=== PATIENT | female | born 1940 | race Caucasian/White ===

== ENCOUNTER 2019-01-31 05:55 | Inpatient (IN) ==
[2019-01-31] MEDS ORDERED: ceFAZolin 2 GM in DEXTROSE 5% IN WATER 50 ML IV SCH (06:00)
[2019-01-31] MEDS ORDERED: IPRATROPIUM/ALBUTEROL 3 ML AMPUL.NEB NEB PRN ×2 (06:00→10:06)
[2019-01-31] MEDS ORDERED: SCOPOLAMINE 1 PATCH PATCH TOPICAL PRN (06:00)
[2019-01-31 06:47] LABS: POC Blood Urea Nitrogen 20 mg/dl (8-23); POC CO2 25 mmol/L (22-30); POC Calcium, Ionized 1.09 mmol/L (1.16-1.32); POC Chloride 104 mmol/L (96-108); POC Creatinine 0.9 mg/dl (0.6-1.1); POC Glucose, Random 100 mg/dL (70-105); POC Potassium 3.9 mmol/L (3.3-5.1); POC Sodium 139 mmol/L (133-145)
--- NOTE | 2019-01-31 07:55 | XRay Report ---
CLINICAL INFORMATION: Preoperative evaluation. Right hip fracture TECHNIQUE: AP pelvis. A lateral right hip COMPARISON: Previous examination dated 01/27/2019 FINDINGS: Subcapital right hip fracture with mild impaction and mild valgus angulation. Appearance is essentially unchanged since 01/27/2019. Pelvis and left hip are negative. Sacrum is negative. IMPRESSION: 1. Subcapital right hip fracture 2. No interval change since 01/27/2019 Interpreted and Authenticated by: Stan Yeboah 01/31/19
[2019-01-31] MEDS ORDERED: PROPOFOL 200 MG/20 ML VIAL IV ONE (09:00)
[2019-01-31] MEDS ORDERED: ONDANSETRON 4 MG/2 ML VIAL IV ONE (09:00)
[2019-01-31] MEDS ORDERED: DEXAMETHASONE 10 MG/ML VIAL IV ONE (09:00)
[2019-01-31] MEDS ORDERED: MIDAZOLAM 2 MG/2 ML VIAL IV ONE (09:00)
[2019-01-31] MEDS ORDERED: PHENYLEPHRINE 10 MG/ML VIAL IV ONE (09:00)
[2019-01-31] MEDS ORDERED: GLYCOPYRROLATE 0.2 MG/ML VIAL IV ONE (09:00)
[2019-01-31] MEDS ORDERED: LIDOCAINE HCL/PF 100 MG/5 ML SYRINGE IV ONE (09:00)
[2019-01-31] MEDS ORDERED: KETAMINE 10 MG/ML ML IV ONE (09:00)
--- NOTE | 2019-01-31 10:00 | Brief Operative Note ---
Date of procedure: 01/31/19 Pre-op diagnosis: right valgus impacted femoral neck fracture Post-op diagnosis: same Procedure: open treatment of femoral neck with cannulated screws. Grafts/Implants: Yes (rahul titanium screws x3) Anesthesia: GETA Findings: valgus impacted femoral neck fracture Complications: none Surgeon: Yvette Nicole Sanding Machine Operator Or Tender: Bentley Ruiz Estimated blood loss (cc): 5 Tourniquet Time (Minutes): 0 Specimens Removed/Pathology: none sent Condition: stable Disposition: PACU
[2019-01-31] MEDS ORDERED: KETOROLAC 15 MG/ML VIAL IV PRN (10:06)
[2019-01-31] MEDS ORDERED: ACETAMINOPHEN 1,000 MG/100 ML BOTTLE IV ONE (10:06)
[2019-01-31] MEDS ORDERED: MEPERIDINE 25 MG/ML SYRINGE IV PRN (10:06)
[2019-01-31] MEDS ORDERED: fentaNYL 100 MCG/2 ML VIAL IV PRN (10:06)
[2019-01-31] MEDS ORDERED: ONDANSETRON 4 MG/2 ML VIAL IV PRN (10:06)
[2019-01-31] MEDS ORDERED: BENZOCAINE/MENTHOL 1 LOZENGE PO PRN (10:08)
[2019-01-31] MEDS ORDERED: ACETAMINOPHEN 325 MG TABLET PO PRN (10:08)
[2019-01-31] MEDS ORDERED: BISACODYL 10 MG SUPP.RECT PR PRN (10:08)
[2019-01-31] MEDS ORDERED: POLYETHYLENE GLYCOL 3350 17 GM PACKET PO PRN (10:08)
[2019-01-31] MEDS ORDERED: MAGNESIUM HYDROXIDE 30 ML ORAL.SUSP PO PRN (10:08)
[2019-01-31] MEDS ORDERED: FLEETS ADULT ENEMA PR PRN (10:08)
[2019-01-31] MEDS ORDERED: LACTATED RINGERS 1,000 ML IV SCH (10:15)
[2019-01-31] MEDS ORDERED: LEVOTHYROXINE 75 MCG TABLET PO ONE (10:17)
--- NOTE | 2019-01-31 10:38 | Operative Note ---
DATE OF OPERATION: 01/31/2019 PREOPERATIVE DIAGNOSIS: Right valgus impacted femoral neck fracture, subacute. POSTOPERATIVE DIAGNOSIS: Right valgus impacted femoral neck fracture, subacute. PROCEDURE PERFORMED: Operative treatment of right femoral neck fracture with cannulated screws. SURGEON: Yvette Nicole MD SUPERVISOR MACHINING: Bentley Ruiz PA-C. This provider's expertise and technical skill were required throughout the case. The PA assisted with preoperative coordination, intraoperative retraction, wound closure, dressing and splint application, as well as postoperative documentation and care coordination. ANESTHESIA: General anesthesia. IV FLUIDS: 700 mL lactated ringer. ESTIMATED BLOOD LOSS: Minimal. TOURNIQUET TIME: Not applicable. ANTIBIOTICS: 2 grams Ancef. IMPLANTS: Yahaira titanium cannulated 6.5 screws, two 85 and one 95. PATHOLOGY TO LAB: None. COMPLICATIONS: None. INDICATIONS FOR PROCEDURE: The patient is a 78-year-old female who over 2 weeks ago fell when she tripped on a new rug that had a curled edge at home. At that time she had hip pain; however, did not present for evaluation as she could still ambulate. She was then seen by her primary care provider this past Wednesday at which time radiographs were taken. They were found to have a femoral neck fracture. At that time she was discharged home with a walker and consult placed with orthopedics for which she was seen Wednesday. I discussed the fracture with her at length along with treatment options and I further discussed the case with a total joint surgeon for recommendation for hip replacement type procedure versus cannulated screws this far from injury. There is a chance that the femoral head could develop AVN, which I discussed with her. However, if we are able to heal the fracture this will be better than having a total hip replacement versus a hemiarthroplasty and revising the screws to total is not too difficult. Given these options, she elected to proceed with operative treatment with cannulated screws, if possible. I did repeat the radiographs this a.m. prior to surgery to ensure that there is no change in overall alignment of the fracture, which was the case. I discussed the risks and benefits as well as postoperative recovery with her at length and she wished to proceed with the surgery. DESCRIPTION OF PROCEDURE: The patient was met in the preoperative holding area. The site was verified and marked with the patient's input. She was subsequently taken back to the operating room where she underwent successful anesthesia. She was placed on to the [place] table with her right foot placed into a boot and adequately padded and perineal post was adequately padded as well. I did not place much traction on the fracture itself and the left lower extremity was placed into a leg da silva in an abducted flexed position for improved visualization of her x-rays; however, I did not flex her to 90 degrees and the peroneal nerve was adequately padded. The right hip was then prepped and draped using the shower curtain drape with ChloraPrep. Surgical timeout was performed to verify patient identity, correct procedure being performed and correct extremity being operated on. Everybody was in agreement. Utilizing a large C-arm, I identified the level of the lesser trochanter, marked this and then placed a guide pin along the inferior border of the femoral neck. I marked this as well. At this location, I created a small incision in the skin and placed a guidewire along the posterior aspect of the neck and inferior portion on the AP. I placed this guidewire under fluoroscopyto. Verified to be subchondral and then utilizing a parallel guide, placed two guide additional pins more proximal along the anterior superior and posterior superior aspects on the lateral. They were parallel fashion on the AP but splayed them slightly on the lateral order to improve spread of the screws through the femoral head. They were then measured. The outer cortex was overdrilled and then a screw was placed sequentially. This was completed with an inferior screw first then the posterior superior screw and the anterior superior screw last in an inverted triangle formation. Once this was complete, the wound was copiously irrigated. The IT band was closed with 0 Vicryl, subcutaneous tissue with 3-0 Vicryl and skin closed with she. The hip was then cleaned and dried. Xeroform was placed along with fluffs and Medipore tape to secure the dressing. The patient awoke from anesthesia and transferred to PACU in stable condition. POSTOPERATIVE PLAN: The patient will be admitted to the floor for postoperative recovery and likely be discharged tomorrow. She is partial weightbearing with a walker as she has been previously. ERIN:brando Job ID: [id number] Doc ID: [id number] Yvette MARTINEZ
[2019-01-31] MEDS: LACTATED RINGERS 1,000 ML IV SCH (12:52)
[2019-01-31] MEDS: 0.9 % SODIUM CHLORIDE 10 ML SYRINGE IV SCH ×2 (13:35→20:56)
[2019-01-31] MEDS: HYDROcodone/APAP 5/325MG TABLET PO PRN ×2 (13:42→18:30)
--- NOTE | 2019-01-31 15:12 | XRay Report ---
CLINICAL INFORMATION: Intraoperative fluoroscopy. Open reduction and internal fixation of right subcapital hip fracture TECHNIQUE: 1.4 minutes fluoroscopy utilized by Dr. Nicole. Multiple spot films obtained COMPARISON: Preoperative plain film examination dated 01/31/2019 IMPRESSION: Intraoperative fluoroscopy utilized for open reduction and internal fixation of right subcapital hip fracture Interpreted and Authenticated by: Stan Yeboah 01/31/19
[2019-01-31] MEDS: ceFAZolin 1 GM VIAL IV SCH ×2 (15:51→22:00)
[2019-01-31] MEDS: DOCUSATE SODIUM 100 MG CAPSULE PO SCH (20:55)
[2019-01-31] MEDS ORDERED: SENNOSIDES 1 TABLET PO SCH (21:00)
[2019-01-31] MEDS: METHOCARBAMOL 750 MG TABLET PO PRN (21:05)
[2019-02-01] MEDS: HYDROcodone/APAP 5/325MG TABLET PO PRN ×2 (00:52→07:22)
[2019-02-01] MEDS: LACTATED RINGERS 1,000 ML IV SCH (01:48)
[2019-02-01] MEDS: METHOCARBAMOL 750 MG TABLET PO PRN (04:05)
[2019-02-01] MEDS: 0.9 % SODIUM CHLORIDE 10 ML SYRINGE IV SCH (05:26)
[2019-02-01] MEDS ORDERED: LEVOTHYROXINE 75 MCG TABLET PO SCH ×2 (07:30→09:00)
--- NOTE | 2019-02-01 08:18 | Orthopedic Progress Note ---
Subjective Patient information: Note initiated : 02/01/19 at 8:15 am Service Date, if different from initiated Date: [] Patient: Myrna Dimas 78 y/o F admitted on 01/31/19 for Right hip pinning versus radha hip arthroplasty. Chief Complaint: right hip pain/muscle spasms. Principal diagnosis: s/p right hip pinning Interval history: Pt is a 78 yo female POD #1 from a right hip pinning for nondisplaced femoral neck fracture. Original injury date preceded surgical intervention by kwadwo sher 2 weeks. Overall doing well this AM. States she had muscle spasms last night. Her pain is managed. Has been ambulating with PT and walker. Denies SOB, CP, N/V, calf tenderness, numbness/tingling. Pertinent ROS: negative except per HPI. Objective Vital signs: Vital Signs Temp Pulse Resp BP BP Pulse Ox 02/01/19 07:33 98.0 F 54 L 14 139/67 97 02/01/19 03:51 98.2 F 61 16 144/66 96 02/01/19 00:00 98.6 F 63 20 132/73 96 01/31/19 19:15 99 F 66 117/69 95 01/31/19 16:22 98.6 F 66 16 128/74 96 01/31/19 12:37 73 130/67 99 01/31/19 12:07 69 153/75 97 01/31/19 11:36 59 L 152/80 98 01/31/19 11:21 58 L 161/72 100 01/31/19 11:06 62 153/77 97 01/31/19 10:51 62 151/69 97 01/31/19 10:45 62 16 97 01/31/19 10:37 97.8 F 61 155/69 96 01/31/19 10:30 97.4 F 60 16 135/64 99 01/31/19 10:20 70 14 132/56 01/31/19 10:10 64 15 125/61 99 01/31/19 10:00 66 15 117/62 98 01/31/19 09:55 65 14 117/58 99 01/31/19 09:53 98.9 F 62 14 115/61 100 Intake and Output 01/31/19 02/01/19 02/01/19 21:59 05:59 13:59 Intake Total 500 600 Output Total 2175 1050 Balance -1675 -450 Intake: Oral 500 GI Tube Flush 600 Output: Urine Catheter Amount 850 200 Straight 850 200 Void Amount 1325 850 Other: Feeding Ability Independent Urine Appearance Clear Clear Straight Clear Clear Urine Color Bright Yellow Bright Yellow Straight Pale Pale Bright Yellow Urine Odor Normal Straight Normal Weight 166 lb 11.2 oz 166 lb 11.2 oz Intake & Output: Intake & Output 01/31/19 02/01/19 02/01/19 21:59 05:59 13:59 Intake Total 500 600 Output Total 2175 1050 Balance -1675 -450 Weight 166 lb 11.2 oz 166 lb 11.2 oz Intake: Oral 500 GI Tube Flush 600 Output: Urine Catheter Amount 850 200 Straight 850 200 Void Amount 1325 850 Other: Feeding Ability Independent Urine Appearance Clear Clear Straight Clear Clear Urine Color Bright Yellow Bright Yellow Straight Pale Pale Bright Yellow Urine Odor Normal Straight Normal Dressing: Yes clean, Yes dry, Yes intact Weight bearing status: partial (50 % WB with Right leg) Neurological exam IM: Yes alert, Yes oriented X3 Extremities exam IM: No calf tenderness, Yes normal inspection, No Sandra's sign, Yes neurovascular intact Assessment and Plan - Narrative A/P Narrative: Pt is a 78 yo female POD #1 from a right hip pinning for nondisplaced femoral neck fracture. Will plan for DC today. Pt expressed concerns with Eliquis and would prefer aspirin for DVT prophylaxis at discharge. She has a walker at home she will use. -50% WB with Right leg -Continue PT, PT RX at discharge -Continue DVT prophylaxis--will plan on Aspirin 325 mg x 14 days at discharge. -F/u with ortho in approximately 2 weeks for staple removal and wound check.
--- NOTE | 2019-02-01 08:25 | Discharge Summary ---
Providers - Providers Patient information: Note initiated : 02/01/19 at 8:23 am Service Date, if different from initiated Date: [] Patient: Myrna Dimas 78 y/o F admitted on 01/31/19 for Right hip pinning for nondisplaced femoral neck fracture. Chief Complaint: Right hip pain. Date of admission: 01/31/19 Discharge date: 02/01/19 Hospitalization Hospital Course: Pt is a 78 yo female POD #1 from a right hip pinning for nondisplaced femoral neck fracture. Original injury date preceded surgical intervention by approximately 2 weeks. Overall doing well this AM. States she had muscle spasms last night. Her pain is managed. Overall unremarkable hospital course. Discharge diagnosis: s/p Right hip pinning Exam - Exam Incision healing: Yes (incision clean, dry, intact) Incision draining: No Clean and dry: Yes Weight bearing status: partial (50% with right leg) Ortho Discharge Plan - General - Patient Instructions Diet: Regular Diet Activity: ambulate with assistive device (50% with Right leg) Dressing Care: Other (may shower with silver dressing place.) Additional Instructions: Keep dressing in place x7 days. OK to shower with dressing in place. Once removed and incision is clean and dry without drainage, OK to shower. However, do not submerge in water such as a bath. No ointments or lotions to the area. Can place a dry gauze dressing over incision until she removed if more comfortable. - Follow Up Plan Follow Up Appointments: Bentley Ruiz PA-C [Physician Power Generation Technician] - (11-13 days post op for wound check, staple removal) Disposition: Home, Self-Care Prognosis: Good Rehab Potential: Good I certify that the patient requires SNF services: No Overall status at discharge: patient is progressing back to baseline - Orders For Discharge Prescriptions: Aspirin [Aspirin EC] 325 mg PO DAILY 14 Days #14 tablet. Docusate Sodium [Colace] 100 mg PO BID #60 cap HYDROcodone/APAP 5/325MG [Ridge 5-325Mg] 1 - 2 tab PO Q4-6HP PRN #60 tab PRN Reason: Pain Level 3-6 Pending Studies Resuscitation Status Full Code Diet Regular Diet Start WedJan 31 1107 Hydrocodone Bitart/Acetaminophen (Ridge 5/325mg) 0 tab PO Q4HP PRN PRN Reason: PAIN LEVEL 3-6 Last Admin: 02/01/19 07:22 Dose: 1 tab Documented by: Admin: 02/01/19 00:52 Dose: 1 tab Documented by: Admin: 01/31/19 18:30 Dose: 1 tab Documented by: Admin: 01/31/19 13:42 Dose: 1 tab Documented by: REMA Docusate Sodium (Colace) 100 mg PO BID [facility] Last Admin: 01/31/19 20:55 Dose: 100 mg Documented by: DESIRE Lactated Ringer's (Lactated Ringers) 1,000 mls @ 75 mls/hr IV .[id number] [facility] Last Admin: 02/01/19 01:48 Dose: Not Given Documented by: Admin: 01/31/19 12:52 Dose: 75 mls/hr Documented by: DELFINAOURTRIGH Levothyroxine Sodium (Synthroid) 75 mcg PO QAMAC [facility] Last Admin: 02/01/19 07:23 Dose: Not Given Documented by: MARVIN Methocarbamol (Robaxin) 750 mg PO Q6HP PRN PRN Reason: Muscle Spasm Last Admin: 02/01/19 04:05 Dose: 750 mg Documented by: Admin: 01/31/19 21:05 Dose: 750 mg Documented by: DESIRE Scopolamine (Transderm-Scop) 1 patch TOPICAL ONCE PRN PRN Reason: Nausea And Vomiting Last Admin: 01/31/19 07:02 Dose: 1 patch Documented by: REMA Senna (Senokot) 2 tab PO HS [facility] Last Admin: 01/31/19 20:55 Dose: 2 tab Documented by: DESIRE Sodium Chloride (Saline Flush) 10 ml IV Q8 [facility] Last Admin: 02/01/19 05:26 Dose: 10 ml Documented by: Admin: 01/31/19 20:56 Dose: 10 ml Documented by: Admin: 01/31/19 13:35 Dose: Not Given Documented by: REMA Shift Summary 02/01/19 05:44 Shift Summary by Sheila De La Torre pt resting at this time and has received pain management throughout the shift. pt's dressing to right hip c/d/i. Initialized on 02/01/19 05:44 - END OF NOTE
[2019-02-01] MEDS ORDERED: HYDROcodone/APAP 5/325MG TABLET PO PRN (08:36)
[2019-02-01] MEDS ORDERED: FLUoxetine HCL 20 MG CAPSULE PO SCH (09:00)
[2019-02-01] MEDS ORDERED: ASCORBIC ACID 500 MG TABLET PO SCH (09:00)
[2019-02-01] MEDS ORDERED: FLUoxetine HCL 10 MG CAPSULE PO SCH (09:00)
[2019-02-01] MEDS ORDERED: MULTIVIT,THER IRON,CA,FA & MIN 1 TABLET PO SCH (09:00)
[2019-02-01] MEDS ORDERED: LACTOBACILLUS 1 CAPSULE PO SCH (09:00)
[2019-02-01] MEDS ORDERED: GLUCOSAMINE/CHONDROITIN SULF A 1 CAP CAPSULE PO SCH (09:00)
[2019-02-01] MEDS ORDERED: CALCIUM W/VIT D3 500 MG TABLET PO SCH (09:00)
[2019-02-01] MEDS ORDERED: VITAMIN B COMPLEX 1 CAPSULE PO SCH (09:00)
[2019-02-01] MEDS ORDERED: APIXABAN 2.5 MG TABLET PO SCH (09:00)
[2019-02-01] MEDS ORDERED: FISH OIL 1,000 MG CAPSULE PO SCH (09:00)
[2019-02-01] MEDS: DOCUSATE SODIUM 100 MG CAPSULE PO SCH (09:33)
== END 2019-02-01 10:10 | disposition home or self-care (01) | DRG 482 ==
LOC: MEDSUR 05:55
PROVIDERS: ADMIT Orthopaedic Surgery; ATTEND Orthopaedic Surgery

== ENCOUNTER 2021-03-25 17:47 | Inpatient (IN) ==
[2021-03-25] MEDS ORDERED: morphine 4 MG/ML VIAL IV ONE (18:02)
--- NOTE | 2021-03-25 18:10 | Emergency Department Note ---
Lower Extremity Injury HPI General Chief Complaint: Extremity Injury, Lower Stated Complaint: left hip fx Time Seen by Provider: 03/25/21 17:58 Source: patient Mode of arrival: wheelchair Limitations: no limitations History of Present Illness HPI Narrative: Narrative: 80-year-old female history of hypothyroid presenting to the ED with left hip fracture. She was simply out for a walk this morning when she stumbled and fell. Complains of mild left hip pain but was able to actually ambulate afterward. No other injury no other complaint. No knee ankle or foot pain. No back pain no contralateral right lower extremity symptoms. [facility] where they did a CT that shows a impacted left femoral neck fracture and was referred here to the ER. Currently pain is 5 out of 10 but comfortable at rest Related Data Home Medications Medication Instructions Recorded Confirmed Lactobacillus acidophilus 1 each PO DAILY 02/10/18 05/09/19 levothyroxine 75 mcg PO DAILY 02/10/18 05/09/19 [id number]-[id number]-ridpn acid-vit K 1 each PO DAILY 02/10/18 05/09/19 vit C 250 mg-vit E 90 mg-zinc 40 1 tab PO QDAY cap 03/29/19 05/09/19 mg-copper 1 zw-yfqyhe-sehubv capsule ascorbic acid 125 mg-collagen, 1 cap PO DAILY cap 04/03/19 05/09/19 hydrolyzed 740 mg capsule fluoxetine 20 mg capsule 40 mg PO DAILY cap 04/03/19 05/09/19 vitamin B complex 1 cap PO QDAY PRN 04/03/19 05/09/19 Allergies Allergy/AdvReac Type Severity Reaction Status Date / Time bacitracin AdvReac Intermediate Rash Verified 03/25/21 17:50 [From Neosporin Plus] lidocaine AdvReac Intermediate Rash Verified 03/25/21 17:50 [From Neosporin Plus] Neomycin AdvReac Intermediate Rash Verified 03/25/21 17:50 [From Neosporin Plus] polymyxin B AdvReac Intermediate Rash Verified 03/25/21 17:50 [From Neosporin Plus] Pramoxine AdvReac Intermediate Rash Verified 03/25/21 17:50 [From Neosporin Plus] Review of Systems ROS ROS Narrative: Narrative: At least 10 systems reviewed and otherwise acutely negative except as in the HPI PFSH Narrative Patient History Narrative: Narrative: Medical/Surgical/Family History All Active Problems (Updated 03/25/21 @ 19:58 by Jj Spears DO) Closed fracture of left hip (Acute) Hx of skin cancer, basal cell (Chronic) Actinic keratosis (Chronic) Memory loss (Chronic) Seborrheic keratosis (Chronic) Arthritis (Chronic) Joint pain (Chronic) History of tobacco use (Chronic) FPC (current) use of aspirin (Chronic) Urinary incontinence (Chronic) Moderate recurrent major depression (Chronic) Osteopenia (Chronic) Goiter, nontoxic, multinodular (Chronic) Hypothyroidism, postsurgical (Chronic) Hypercholesterolemia (Chronic) Other fracture of head and neck of right femur, initial encounter for closed fracture (Chronic) Cellulitis of leg, left (Chronic) Urinary hesitancy (Chronic) Post-phlebitic syndrome (Chronic) Venous ulcer (Chronic) Bruise (Chronic) Walker as ambulation aid (Chronic) Dizziness (Chronic) Urgency of urination (Chronic) Frequency of urination (Chronic) Edema (Chronic) Weight gain (Chronic) Squamous cell carcinoma of leg (Chronic) Non-healing wound (Chronic) Medical History (Updated 03/25/21 @ 19:58 by Jj Spears DO) Abnormal gait Actinic keratosis Arthritis Bruise Cellulitis of leg, left Dizziness Edema Frequency of urination Goiter, nontoxic, multinodular History of tobacco use Hx of skin cancer, basal cell Hypercholesterolemia Hypothyroidism, postsurgical 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) use of aspirin Memory loss Moderate recurrent major depression Non-healing wound Left Medial Ankle Osteopenia Other fracture of head and neck of right femur, initial encounter for closed fracture Post-phlebitic syndrome Seborrheic keratosis Squamous cell carcinoma of leg Urgency of urination Urinary hesitancy Urinary incontinence Venous ulcer Partial Thickness Walker as ambulation aid Weight gain Surgical History S/P hysterectomy S/P partial thyroidectomy S/P tonsillectomy S/P vein stripping Status post hip surgery Family History Mother , 50's FHx: mental illness Suicide Depression Anxiety Family/Other Rheumatoid arthritis Father No problems noted. Sister Rheumatoid arthritis Afib Social History Smoking Status: Former smoker Alcohol Intake Frequency: 0-2 drinks per day Substance Use: does not use Exam Narrative Narrative: Narrative:Constitutional: normally developed, no acute distress . Head: Normocephalic, atraumatic, Eyes: No Icterus, ENT: Moist mucus membranes, Neck: Supple, Cardiac: Normal heart sounds, palpable radial pulses, no peripheral edema Pulmonary: Normal respiratory effort. Breath sounds clear, no wheeze, rhonchi, rales, Gastrointestinal: Abdomen soft, non-distended, non-tender, pelvis stable Musculoskeletal: No gross deformities, well perfused. Lower extremities well perfused, sensation light touch intact, full range of motion at the ankle. Knee is nontender, patient gets pain with flexion of her left hip but no significant pain with logroll. Right lower extremity unremarkable Skin: warm, dry Neuro: Alert. General Limitations: no limitations Course Vital Signs Vital signs: Vital Signs Temperature 36.8 C 03/25/21 17:48 Pulse Rate 79 03/25/21 17:48 Respiratory Rate 16 03/25/21 17:48 Blood Pressure 146/92 03/25/21 17:48 Pulse Oximetry (%) 94 03/25/21 17:48 Temperature 36.8 C 03/25/21 17:48 Pulse Rate 73 03/25/21 19:19 Respiratory Rate 16 03/25/21 19:19 Blood Pressure 151/74 03/25/21 19:19 Pulse Oximetry (%) 94 03/25/21 19:19 MDM MDM Narrative Medical decision making narrative: Narrative: Patient who had a isolated left hip impacted femoral neck fracture quite comfortable at rest with mild to moderate pain, outpatient CT shows impacted left femoral neck fracture sent here for orthopedic care. Will obtain basic and preop labs, is given analgesia will consult with orthopedics Twelve-lead EKG shows sinus rhythm heart rate 73 [place] within normal QTC slightly prolonged 506, patient has right bundle branch block pattern, no acute ischemia noted Covid negative Coags within normal Basic labs pending X-ray shows known fracture Has been evaluated by orthopedics Dr. Starks. He will admit to his own service as primary, likely undergo fixation tonight. Patient agreeable to plan. Vital signs remained stable pain controlled. Lab Data Result diagrams: 03/25/21 18:02 03/25/21 19:27 Labs: Lab Results 03/25/21 Range/Units 18:02 POC PT 12.3 (11.9-14.5) sec POC INR 1.0 (0.8-1.2) ED POC Tests ED POC Tests: AYAN - SARS Antigen Negative Discharge Plan Patient/Caregiver Discharge Instructions Pt seen by MARINE ERECTOR/PA only: No Clinical Impression: Closed fracture of left hip Qualifiers: Encounter type: initial encounter Qualified Code(s): S72.002A - Fracture of u nspecified part of neck of left femur, initial encounter for closed fracture Patient Disposition: Xfer As Inpt ([facility]) Condition: Fair Follow up with: Keiko Esquivel MD [Primary Care Provider] - Prescriptions: No Action PreserVision AREDS-2 [id number] fw-jbpz-ah-mg capsule 1 tab PO QDAY RF: 0 vitamin B complex [Super B-50 Complex] capsule 1 cap PO QDAY PRNRF: 0 ascorbic acid-collagen 125-740 mg capsule 1 cap PO DAILY RF: 0 levothyroxine 75 MCG tablet 75 mcg PO DAILY RF: 0 mkiexwyh-fpy-vvsfj acid-vit K 1 EACH capsule 1 each PO DAILY RF: 0 Lactobacillus acidophilus 1 EACH capsule 1 each PO DAILY RF: 0 fluoxetine 20 mg capsule 40 mg PO DAILY RF: 0
[2021-03-25] MEDS ORDERED: ONDANSETRON 4 MG/2 ML VIAL IV PRN ×3 (19:32→22:57)
[2021-03-25] MEDS ORDERED: NALOXONE HCL 0.4 MG/ML VIAL IV PRN ×2 (19:32→22:57)
[2021-03-25] MEDS ORDERED: morphine 2 MG/ML VIAL IV PRN (19:32)
[2021-03-25] MEDS ORDERED: LACTATED RINGERS 1,000 ML IV SCH ×2 (19:45→23:00)
--- NOTE | 2021-03-25 19:45 | XRay Report ---
INDICATION: L fem neck fracture on CT, pre-op XR TECHNIQUE: AP pelvis. AP and lateral left hip COMPARISON: Previous CT scan dated 03/25/2021 FINDINGS: Acute left subcapital hip fracture with impaction. Pelvis and sacrum are negative. Previous right hip fracture with cancellous screws in the right femoral head and neck. There is degenerative joint disease in the right hip. IMPRESSION: Acute left subcapital hip fracture Interpreted and Authenticated by: Stan Yeboah 03/25/21
[2021-03-25 19:47] LABS: POC Pro Time 12.3 sec (11.9-14.5)
[2021-03-25 20:17] LABS: Basophils # (Auto) 0.02 K/mcL (0.00-0.30); Basophils % (Auto) 0.4 % (0.0-2.0); Eosinophils # (Auto) 0.05 K/mcL (0.00-0.70); Eosinophils % (Auto) 0.9 % (0.0-7.0); Hematocrit 35.6 % (34.1-44.9); Hemoglobin 11.9 g/dL (11.2-15.7); Lymphocytes # (Auto) 1.14 K/mcL (1.50-4.80); Lymphocytes % (Auto) 20.8 % (15.5-49.0); Mean Cell Volume 90.8 fL (80.0-100.0); Mean Corpuscular HGB Conc 33.4 g/dL (31.0-36.0); Mean Platelet Volume 9.9 fL (7.4-10.4); Monocytes # (Auto) 0.49 K/mcL (0.10-0.90); Monocytes % (Auto) 8.9 % (1.0-12.0); Platelet Count 228 K/mcL (140-440); RBC 3.92 M/mcL (3.59-5.38); Red Cell Distribution Width 13.2 % (11.5-14.5); WBC 5.5 K/mcL (4.5-11.0)
[2021-03-25 20:35] LABS: Blood Urea Nitrogen 17 mg/dL (8-23); Calcium 9.1 mg/dL (8.6-10.4); Carbon Dioxide 23 mmol/L (22-30); Chloride 102 mmol/L (96-108); Glomerular Filtration Rate 70; Glucose 105 mg/dL (70-105)
--- NOTE | 2021-03-25 21:57 | Brief Operative Note ---
Brief Operative Note Date of procedure: 03/25/21 Pre-op diagnosis: right hip fracture femoral neck fracture Post-op diagnosis: same Procedure: right hip fracture orif femoral neck fracature Grafts/Implants: Yes Anesthesia: GETA Complications: none Surgeon: Hakan Vaca Lesson Instructor: Adebayo Jim Estimated blood loss (cc): 50.00 Tourniquet Time (Minutes): 0 Specimens Removed/Pathology: none sent Condition: stable Disposition: PACU
--- NOTE | 2021-03-25 22:00 | Brief Operative Note ---
Brief Operative Note Date of procedure: 03/25/21 Pre-op diagnosis: left hip fracture Post-op diagnosis: same Procedure: left hip orif femoral neck fracture Grafts/Implants: Yes Anesthesia: GETA Complications: none Surgeon: Hakan Vaca Clerk General: Adebayo Jim Estimated blood loss (cc): 50.00 Specimens Removed/Pathology: none sent Condition: stable Disposition: PACU
[2021-03-25] MEDS ORDERED: ACETAMINOPHEN 325 MG TABLET PO PRN (22:01)
[2021-03-25] MEDS ORDERED: BISACODYL 10 MG SUPP.RECT PR PRN (22:01)
[2021-03-25] MEDS ORDERED: FLEETS ADULT ENEMA PR PRN (22:01)
[2021-03-25] MEDS ORDERED: TRANEXAMIC ACID 1,000 MG/10 ML VIAL IV ONE (22:01)
[2021-03-25] MEDS ORDERED: POLYETHYLENE GLYCOL 3350 17 GM PACKET PO PRN (22:01)
[2021-03-25] MEDS ORDERED: MAGNESIUM HYDROXIDE 30 ML ORAL.SUSP PO PRN (22:01)
[2021-03-25] MEDS ORDERED: TEMAZEPAM 15 MG CAPSULE PO PRN (22:01)
[2021-03-25] MEDS ORDERED: BENZOCAINE/MENTHOL 1 LOZENGE PO PRN ×2 (22:01→22:57)
[2021-03-25] MEDS ORDERED: HYDROmorphone 1 MG/ML SYRINGE IV PRN (22:01)
[2021-03-25] MEDS ORDERED: ceFAZolin 1 GM VIAL ONE (22:12)
[2021-03-25] MEDS ORDERED: PROPOFOL 200 MG/20 ML VIAL IV ONE (22:30)
[2021-03-25] MEDS ORDERED: MAGNESIUM SULFATE 2 GM/50 ML BAG IV ONE (22:30)
[2021-03-25] MEDS ORDERED: LIDOCAINE HCL/PF 100 MG/5 ML SYRINGE IV ONE (22:30)
[2021-03-25] MEDS ORDERED: GLYCOPYRROLATE 0.2 MG/ML VIAL IV ONE (22:30)
[2021-03-25] MEDS ORDERED: fentaNYL 100 MCG/2 ML VIAL IV ONE (22:30)
[2021-03-25] MEDS ORDERED: ONDANSETRON 4 MG/2 ML VIAL ONE (22:30)
[2021-03-25] MEDS ORDERED: ePHEDrine 50 MG/5 ML SYRINGE (ANEST) IV ONE (22:30)
[2021-03-25] MEDS ORDERED: HYDROmorphone 1 MG/ML SYRINGE ONE (22:30)
[2021-03-25] MEDS ORDERED: MIDAZOLAM 2 MG/2 ML VIAL ONE (22:30)
[2021-03-25] MEDS ORDERED: PHENYLephrine 1 MG/10 ML SYRINGE (ANEST) ONE (22:30)
[2021-03-25] MEDS ORDERED: TRANEXAMIC ACID 1,000 MG/10 ML VIAL ONE ×2 (22:30→23:48)
[2021-03-25] MEDS ORDERED: DEXAMETHASONE 10 MG/ML VIAL ONE (22:30)
[2021-03-25] MEDS ORDERED: KETAMINE 50 MG/ML Syringe (ANEST) IV ONE (22:30)
[2021-03-25] MEDS: ceFAZolin 1 GM VIAL IV SCH (22:35)
[2021-03-25] MEDS ORDERED: ACETAMINOPHEN 1,000 MG/100 ML BAG IV ONE ×2 (22:57→23:19)
[2021-03-25] MEDS ORDERED: MEPERIDINE 25 MG/ML VIAL IV PRN (22:57)
[2021-03-25] MEDS ORDERED: fentaNYL 100 MCG/2 ML VIAL IV PRN (22:57)
[2021-03-25] MEDS ORDERED: LACTATED RINGERS 250 ML IV PRN (22:57)
[2021-03-25] MEDS ORDERED: IPRATROPIUM/ALBUTEROL 3 ML AMPUL.NEB NEB PRN (22:57)
[2021-03-25] MEDS ORDERED: LABETALOL 5 MG/ML ML IV PRN (22:57)
[2021-03-25] MEDS ORDERED: METOPROLOL TARTRATE 5 MG/5 ML VIAL IV PRN (22:57)
[2021-03-25] MEDS ORDERED: FLUMAZENIL 0.1 MG/ML ML IV PRN (22:57)
[2021-03-25] MEDS ORDERED: METHOCARBAMOL 1,000 MG/10 ML VIAL IV PRN (22:57)
[2021-03-26] MEDS: LACTATED RINGERS 1,000 ML IV SCH ×2 (01:03→08:00)
[2021-03-26] MEDS: oxyCODONE/APAP 5/325MG TABLET PO PRN ×3 (01:15→12:36)
[2021-03-26] MEDS ORDERED: TEMAZEPAM 15 MG CAPSULE PO ONE (01:18)
[2021-03-26] MEDS ORDERED: oxyCODONE/APAP 5/325MG TABLET PO ONE (01:18)
[2021-03-26] MEDS: 0.9 % SODIUM CHLORIDE 10 ML SYRINGE IV SCH ×2 (05:50→12:36)
--- NOTE | 2021-03-26 06:12 | XRay Report ---
INDICATION: Post-Op Total Hip TECHNIQUE: AP pelvis. AP and crosstable lateral left hip COMPARISON: Preoperative examination dated 03/25/2021 FINDINGS: Status post open reduction and internal fixation of left subcapital hip fracture. 3 cancellous screws have been placed in the left femoral head and neck. Alignment is unchanged since preoperative evaluation. IMPRESSION: Status post open reduction and internal fixation of left subcapital fracture Interpreted and Authenticated by: Stan Yeboah 03/26/21
--- NOTE | 2021-03-26 06:18 | XRay Report ---
INDICATION: left hip pinning TECHNIQUE: 0.5 minutes fluoroscopy and 6.65 mGy exposure utilized. Multiple spot films were obtained. Patient underwent pinning of a left subcapital hip fracture. IMPRESSION: Intraoperative fluoroscopy and spot films Interpreted and Authenticated by: Stan Yeboah 03/26/21
--- NOTE | 2021-03-26 07:18 | Consultation ---
DATE OF CONSULTATION: 03/25/2021 CHIEF COMPLAINT: Left hip injury after a fall. HISTORY OF PRESENT ILLNESS: This is a pleasant 80-year-old female who presented to the emergency department after she took a walk this morning, stumbled and fell. The patient had progressive hip pain throughout the day. She began developing significant limp with the ability to still bear some weight and wanted to have this checked out. She went to [facility] express care where initial radiographs were fairly unremarkable, however, a CT scan was then obtained, did show an impacted femoral neck fracture. Orthopedics were consulted at that time and she was then referred to [facility] Emergency Department thereafter. HOME MEDICATIONS: This patient's home medications include, 1. Levothyroxine. 2. Fluoxetine. PAST MEDICAL HISTORY: Remarkable for hypothyroidism and depression. PAST SURGICAL HISTORY: Includes a previous right hip fracture and subsequent percutaneous pin fixation and a hysterectomy. FAMILY HISTORY: Remarkable for a sister with heart disease. No other remarkable family history. ALLERGIES: KNOWN DRUG ALLERGIES TO BACITRACIN, LIDOCAINE, NEOMYCIN, POLYMYXIN, AND PRAMOXINE; ALL FROM NEOSPORIN PLUS. REVIEW OF SYSTEMS: The patient denies any vision changes, fevers, sweats, chills, headache, chest pain, syncope, shortness of breath, nausea, vomiting, abdominal pain, melena, hematochezia, or dysuria. The patient's 10-point review of systems is negative otherwise, other than previously mentioned HPI. SOCIAL HISTORY: She is . Lives in [place] with her . She does have a glass of wine every night for dinner but denies any tobacco use. PAST SURGICAL HISTORY: Additionally, she has had vein stripping, tonsillectomy, and partial thyroidectomy. PHYSICAL EXAMINATION: CURRENT VITAL SIGNS: Include, temperature of 36.8 centigrade, pulse rate 79, respirations 16, blood pressure 146/92, pulse ox 94% on room air. GENERAL: Reveals well-developed, well-nourished pleasant 80-year-old female, awake, alert, appears to be in no apparent distress. She is a good historian. HEENT: Head is normocephalic. Pupils equal, round, reactive to light. No nystagmus or strabismus. EOMs within normal limits. NECK: Supple without adenopathy or thyromegaly. CHEST: Clear to auscultation. No wheezing, rhonchi, or rales. CARDIAC: Normal sinus rhythm. No gallops, rubs, or murmurs. ABDOMEN: Soft, nontender. No gross organomegaly. No guarding. No rigidity or rebound tenderness. MUSCULOSKELETAL: Demonstrates no gross deformities. EXTREMITIES: The lower extremities are well perfused. The patient did have the ability to flex the hip. The hip was not shortened or externally rotated but she had intact dorsiflexors, plantar flexors, hip flexion of quads, and all other motor exam was fairly unremarkable. She was otherwise neurovascularly intact. IMAGING: The CT scan does demonstrate a discreet impacted femoral neck fracture. These were reviewed from outside facility. Outside facility radiographs were fairly undetectable but this was evident on radiographs as well. ASSESSMENT: Left impacted femoral neck fracture that is closed. Treatment plan after joint counseling with another orthopedic surgeon and the patient. The patient desired initially to have Dr. Nicole do this surgery, however, he was unable to do this until tomorrow morning at [facility] which should pose a dilemma and that the patient was currently residing at [facility]. We elected to proceed forward with a left hip closed reduction with percutaneous pin fixation with possible radha-hip arthroplasty. The patient understands the benefits, risks, and alternatives to this procedure that certainly includes the possibility of further collapsing the femoral neck and development of avascular necrosis that could result in future radha and/or total hip arthroplasty. Complications of anesthesia that could include but not necessarily limit to heart attack, stroke, , blood loss that could necessitate blood transfusion with the secondary risk acquisition of hepatitis, HIV, or AIDS. Injury to adjacent blood vessels or nerves that could result in chronic pain or paraesthesias. Infection that could require detention IV antibiotics and/or future repeat surgeries. While these risks were communicated with the patient, she understood them, understands the procedure as it had been explained to her and consents to this procedure. The patient will stay tonight for additional IV antibiotic and pain control and will be discharged tomorrow morning. The hospitalist will also be consulting and admitted this patient and evaluating her medically following surgery. JHOANA:marcy Job ID: [id number] Doc ID: [id number] Adebayo Jim PA-C
[2021-03-26] MEDS ORDERED: LEVOTHYROXINE 75 MCG TABLET PO SCH (07:30)
[2021-03-26] MEDS: ceFAZolin 1 GM VIAL IV SCH (07:57)
[2021-03-26] MEDS ORDERED: ASPIRIN 81 MG TAB.CHEW CHEWED SCH (09:00)
[2021-03-26] MEDS ORDERED: VITAMIN B COMPLEX 1 CAPSULE PO SCH (09:00)
[2021-03-26] MEDS ORDERED: LACTOBACILLUS 1 CAPSULE PO SCH (09:00)
[2021-03-26] MEDS ORDERED: ASCORBIC ACID COLLAGEN PO SCH (09:00)
[2021-03-26] MEDS ORDERED: BETAMETHASONE DIPR OINT 0.05% 15 GM TUBE TOPICAL SCH (09:00)
[2021-03-26] MEDS ORDERED: DOCUSATE SODIUM 100 MG CAPSULE PO SCH (09:00)
[2021-03-26] MEDS ORDERED: VIT A,C & E/LUTEIN/MINERALS TABLET PO SCH (09:00)
[2021-03-26] MEDS ORDERED: FLUoxetine HCL 20 MG CAPSULE PO SCH (09:00)
--- NOTE | 2021-03-26 09:41 | Operative Note ---
DATE OF OPERATION: 03/25/2021 PREOPERATIVE DIAGNOSIS: Left hip femoral neck fracture, displaced. POSTOPERATIVE DIAGNOSIS: Left impacted femoral neck fracture. PROCEDURE: Left hip closed reduction and percutaneous pinning of the left hip. SURGEON: Hakan Vaca M.D. POSTAGE MACHINE OPERATOR: Adebayo Jim PA-C. This providers expertise and technical skill were required throughout the case. The JESSICA assisted with preoperative coordination, intraoperative retraction, wound closure, and dressing and splint application, as well as postoperative documentation and care coordination. ANESTHESIA: General LMA anesthesia. COMPLICATIONS: None. DISPOSITION: To PACU. SPECIMEN SENT: None. IMPLANTS: 6.5 cannulated screws x3, two 90 mm screws and one 85 mm screw. Image was used during the case. BLOOD PRODUCTS GIVEN: None. IV ANTIBIOTICS: Preoperative antibiotics and tranexamic acid were given. DESCRIPTION OF PROCEDURE: The patient was brought to the operating room. After being put to sleep with general LMA anesthesia, the left hip was sterilely prepped and draped in the usual sterile fashion on the fracture table. This was imaged and we confirmed the level of the incision. A timeout had been performed confirming the operative site by initials, consent form, and x-rays. The incision about 1 in length laterally on the thigh was made. Through this, we placed three pins measured to the length and they measured 90 x 2 mm and 85 mm. We took AP and lateral views to make sure that they were in optimal position. Once done, we were able to then tighten the screws. The hip was stable, taken through the arc of motion showing no motion at the fracture site. They did not penetrate the articular surface. We irrigated thoroughly and saved images. We closed the wound with 2-0 Vicryl and 3-0 Monocryl. Sterile bandage was applied. The patient tolerated this well without complication. BLOOD LOSS: Less than 50 mL. RBH:brando Job ID: [id number] Doc ID: [id number] Hakan Vaca MD
[2021-03-26] MEDS ORDERED: MULTIVIT,THER IRON,CA,FA & MIN 1 TABLET PO SCH (12:00)
--- NOTE | 2021-03-26 16:59 | Discharge Plan ---
Discharge Instructions - SANJEEV Patient Instructions Total Hip Protocol: Follow activity instructions as provided by Physical Therapy. Discharge Plan Patient/Caregiver Discharge Instructions Activity: ambulate only with your walker and as per physical therapy Diet: Regular Diet Instructions: ORIF of Hip Fracture (DC) Prescriptions: New oxycodone-acetaminophen 5-325 mg Tablet 1 - 2 tab PO Q4HP PRN (Reason: Per Pain Protocol) Qty: 60 RF: 0 docusate sodium 100 mg Capsule 100 mg PO BID Qty: 60 RF: 0 aspirin 81 mg Tablet,Chewable 81 mg CHEWED BID Qty: 60 RF: 0 No Action PreserVision AREDS-2 [id number] ly-wpcd-ad-mg capsule 1 tab PO QDAY RF: 0 vitamin B complex [Super B-50 Complex] capsule 1 cap PO QDAY RF: 0 ascorbic acid-collagen 125-740 mg capsule 1 cap PO DAILY RF: 0 levothyroxine 75 MCG tablet 75 mcg PO DAILY RF: 0 fokzwfyr-jur-pbhud acid-vit K 1 EACH capsule 1 each PO DAILY RF: 0 Lactobacillus acidophilus 1 EACH capsule 1 each PO DAILY RF: 0 fluoxetine 20 mg capsule 40 mg PO DAILY RF: 0 betamethasone dipropionate 0.05 % ointment 1 applic TOPICAL DAILY RF: 0 Other Ambulatory Orders: Physical Therapy DC - SANJEEV (Routine) Location: None Selected Ordered By: Adebayo Jim Toilet Riser Discharge Order (ONCE) Location: None Selected Ordered By: Adebayo Jim Walker (ONCE) Location: None Selected Ordered By: Adebayo Jim Follow Up Plan Follow up with: Adebayo Jim PA-C [Physician Product Support Sales Representative] - 04/08/21 8:50 am Patient Disposition: Home, Self-Care Prognosis: Fair Rehab Potential: Good I certify that the patient requires SNF services: No Overall status at discharge: patient is progressing back to baseline Discharge Orders: Discharge Order (Routine); Ordered 03/26/21 Ordered By: Adebayo Jim
[2021-03-26] MEDS ORDERED: SENNOSIDES 1 TABLET PO SCH (21:00)
--- NOTE | 2021-03-27 16:38 | EKG ---
[facility] Test Date: 2021-03-25 Pat Name: Myrna Dimas Department: ED Room: Gender: Female Field Placement Director: sb : 1940 Requested By: Jj Spears Order Number: [id number] Reading MD: Stan Gu M.D. Measurements Intervals Villalba Rate: 73 P: 43 SC: 154 QRS: -18 QRSD: 140 T: 10 QT: 459 QTc: 506 Interpretive Statements Sinus rhythm ventricular premature complexes Right bundle branch block Electronically Signed On 03-27-2021 16:38:25 PDT by Stan Gu M.D. /[id number]
== END 2021-03-26 17:58 | disposition home or self-care (01) ==
LOC: ED 17:47 → MEDSUR 20:03
PROVIDERS: ADMIT Orthopaedic Surgery; ATTEND Orthopaedic Surgery